=== PATIENT | male | born 1985 | race Caucasian/White ===

== ENCOUNTER 2019-02-04 06:34 | Observation (INO) | payer BC ==
[2019-02-04] VITALS (9 sets, daily range): BP systolic 119–136; BP diastolic 67–86
[~2019-02-04] VITALS: Ht 182.9 cm; Wt 123.5 kg
--- NOTE | ~2019-02-04 | P ---
[facility] [place] [address] PROCEDURE REPORT Name: KARLENE ANDERSON Room #: 219-P [facility] M.R.#: [id number] Admission: 02/04/19 ������������������ Attend Phys: Jones Greco MD Discharge: ������������������ Date of : [birth year] Report #: [id number] THIS REPORT FOR: //name// CC: Jones Gayle DATE OF SERVICE: 02/04/2019 SVT ABLATION: PREOPERATIVE DIAGNOSIS: Atrial tachycardia. POSTOPERATIVE DIAGNOSIS: Atrial tachycardia arising from the right inferior pulmonary vein. PROCEDURES PERFORMED: 1. SVT ablation, CPT code 33873. 2. EP with left atrial pacing and recording, CPT code 04464. 3. Program stimulation and pacing after IV drug infusion, CPT code 87941. 4. Intracardiac echo, CPT code 82930. 5. A 3D mapping, CPT code 45720. 6. Transseptal, CPT code 69812. HISTORY: The patient is a 33-year-old with a history of longstanding SVT, recently diagnosed with a tachycardia mediated cardiomyopathy, EF of 10-15%. He underwent coronary angiogram showing normal coronary arteries. He underwent attempted cardioversion, but this did not terminate the atrial tachycardia. He is here for EP study and ablation. Prior to the procedure, the patient presented in SVT going at around 160-200 beats a minute. In the preoperative holding area, I gave him digoxin 0.5 IV x 1 followed by metoprolol 5 mg x 1. This resulted in slowing of his ventricular rate to around 100 beats per minute. As such, he was prepped and draped in a sterile fashion and placed under general anesthesia and an arterial line was placed by Anesthesia. I then injected lidocaine to the groin region, obtained access to the right and left femoral veins placing an 8 and 6-Spanish short sheath in the right femoral vein and a 7 and 9-Spanish short sheath in the left femoral vein. Next, under fluoroscopy, I placed a Decapolar catheter into the coronary sinus. At baseline, the patient was in what appeared to be an atrial tachycardia with an atrial cycle length of 400 milliseconds, ventricular cycle length of 400 milliseconds, QRS duration of 100 milliseconds, QT interval 330 milliseconds. The atrial activation was very vertical suggestive that this was likely a left-sided atrial tachycardia. [facility] [address] [place] [address] PROCEDURE REPORT Name: KARLENE ANDERSON [facility] Room #: 219-P [facility] Sun Sepulveda#: [id number] Admission: 02/04/19 ������������������ Attend Phys: Jones Greco MD Discharge: ������������������ Date of : [birth year] Report #: [id number] Next, I placed a PentaRay mapping catheter into the right atrium and we created a detailed activation map in the right atrium, which clearly showed that the area of earliest activation was along the posterior septal aspect of the right atrium, suggesting that this was likely a right pulmonary vein focus. As such, the patient was prepped for a transseptal. I placed an ice catheter into the right atrium and created a detailed 3D geometry using CartoSound. There was evidence of a left atrial appendage right into left pulmonary veins. The patient was systemically heparinized and a transseptal was performed using an SL1 sheath and a [place] needle. Next, I placed the PentaRay into the left atrium and created an activation map which demonstrated that this focal atrial tachycardia was arising from the posterior ostium of the right inferior pulmonary vein. Next, I removed my PentaRay catheter and placed the ablation catheter and performed a finer mapping at this location. There was a small focal area where this was arising from that was around 2 cm in size. There was nice unipolar electrograms at this site. I came on with ablation at 35 mcintosh and the atrial tachycardia terminated within 549 milliseconds. This resulted in a long conversion pause and we came on atrial pacing. I slowly came off atrial pacing and his sinus node resumed its activity. I performed an additional ablation at this area to try and consolidate the site of ablation. Then, an EP study was performed. Post-ablation, the patient was in sinus rhythm and AV block was noted at 320 milliseconds. AV karol ERP was noted at 340 milliseconds at a [address] cycle length. Isoproterenol infusion was started at 1 mcg per minute. AV block was noted at 300 milliseconds. AV karol ERP was noted at 290 milliseconds at a [address] cycle length. There were no jumps nor were there any AV karol echoes. Isoproterenol infusion was increased to 2 mcg per minute and AV block was noted at 290 milliseconds. Of note, with atrial burst pacing, the patient did develop right bundle-branch block aberration. Again, no SVT was induced and there was no return of his focal atrial tachycardia. Post-ablation, he was in sinus rhythm with sinus cycle length of 750 milliseconds, MS interval 180 milliseconds, QRS duration 100 milliseconds, a QT interval of 380 milliseconds. As such, catheters and sheaths were pulled. Hemostasis was obtained after the patient received systemic protamine. Using intracardiac ultrasound, I verified there was no pericardial effusion. As such, the procedure was concluded with no complications and no significant bleeding. CONCLUSIONS: 1. Successful ablation of a focal atrial tachycardia arising from the ostium of the posterior aspect of the right inferior pulmonary vein. 2. Normal SA karol function. 3. Normal AV karol function. [facility] [address] [place] [address] PROCEDURE REPORT Name: KARLENE ANDERSON MAY Room #: 219-P [facility] Sun M.R.#: [id number] Admission: 02/04/19 ������������������ Attend Phys: Jones Greco MD Discharge: ������������������ Date of : 89 Report #: [id number] 4. Normal His-Purkinje function. 5. No other inducible arrhythmias on or off isoproterenol. ��������������������������������������������� ���������������������������������������� By: ��������������������������������������������� 1300 0728 Jones Greco MD /nt
[~2019-02-04 06:34] MED LIST: CLARITIN10 MG PO; DIGOXIN125 MCG PO; ELIQUIS5 MG PO; ENTRESTO 24 MG1 EACH PO; EUTHYROX125 MCG PO; FLONASE SENSIM5.9 ML INH; LASIX 20 MG TAB20 MG PO; TOPROL XL100 MG PO
[2019-02-04 07:13] LABS: ABSOLUTE NEUTROPHILS 6.6 thou/uL (1.4-8.2); EOSINOPHILS 2.8 % (0.0-3.0); HEMATOCRIT 55.1 % (42.0-52.0); HEMOGLOBIN 18.5 gm/dL (14.0-18.0); MCH 29.6 pg (26.0-34.0); MCHC 33.6 g/dL (28.0-37.0); MCV 88.1 fL (80.0-100.0); MONOCYTES 7.1 % (1.0-8.0); PLATELET COUNT 187 thou/uL (150-400); POLYS 63.1 % (36.0-66.0); RBC 6.26 mil/uL (4.50-6.00); RDW 15.2 % (10.5-14.5); WBC 10.4 thou/uL (4.0-11.0)
[2019-02-04 07:23] LABS: CALCIUM 9.9 mg/dL (8.5-10.1)
[2019-02-04 07:25] LABS: APTT 27.3 Seconds (24.5-32.8); PROTIME 10.5 Seconds (9.3-11.4)
[2019-02-04 07:29] LABS: ALBUMIN 4.2 g/dL (3.4-5.0); TOTAL BILIRUBIN 0.6 mg/dL (<0.1-1.0); TOTAL PROTEIN 7.8 g/dL (6.4-8.2)
--- NOTE | 2019-02-04 08:26 | EKG ---
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 : 1985 Requested By: Jones Greco Order Number: [id number] MD: Jones Greco Measurements Intervals [place] Rate: 160 P: 0 HI: QRS: -13 QRSD: 107 T: 74 QT: 318 QTc: 519 Interpretive Statements SVT, history of atrial tachycardia No previous ECG available for comparison Electronically Signed On 02-04-2019 8:26:35 CDT by Jones Greco [email or web address] ��������������������������������������������� <ELECTRONICALLY SIGNED> ���������������������������������������� By: Jones Greco MD ��������������������������������������������� 02/04/19 0826 0738 7 Jones Greco MD /GARRET
[2019-02-04] MEDS ORDERED: TOPROL XL100 MG PO (15:22)
[2019-02-04] MEDS ORDERED: AMBIEN 5 MG TABL5 M1 PO (17:08)
[2019-02-05 00:39] VITALS: BP 131/78
[2019-02-05 05:41] VITALS: BP 121/71
[2019-02-05 08:17] VITALS: BP 125/78
[2019-02-05 09:56] VITALS: BP 125/78
--- NOTE | 2019-02-05 16:15 | D ---
[facility] [place] [address] DISCHARGE SUMMARY Name: KARLENE ANDERSON Room #: 219-P [facility] Sun M.Rojas#: [id number] Admission: 02/04/19 ������������������ Attend Phys: Jones Greco MD Discharge: 02/05/19 ������������������ Date of : [birth year] Report #: [id number] THIS REPORT FOR: //name// CC: Jones Gayle DATE OF SERVICE: 02/05/2019 FINAL DIAGNOSES: 1. Atrial tachycardia, status post ablation. 2. Nonischemic cardiomyopathy. 3. Tobacco use. 4. Hypertension. 5. Hypothyroidism. 6. Deep vein thrombosis of the left arm. HOSPITAL COURSE: Please see the original H and P for full details. The patient presented for elective EP procedure with Dr. Jones Greoc. He was found to have an atrial tachycardia, undergoing successful ablation. The arrhythmia was arising from the right inferior pulmonary vein. He remains clinically stable overnight. He denies any chest pains or shortness of air. He is stable for discharge and arrangements were made for follow up with Dr. Greco and his nurse practitioner. DISPOSITION: We will resume Eliquis 5 mg twice a day, Lasix, Synthroid, Toprol-XL 50 mg and Entresto. Digoxin will be discontinued. ��������������������������������������������� <ELECTRONICALLY SIGNED> ���������������������������������������� By: Akshat Wiley MD ��������������������������������������������� 02/05/19 1615 0812 1525 MD piper Abreu
== END 2019-02-05 10:34 | disposition home or self-care (01) ==
LOC: CATH 06:34 → 2N 13:25 → CATH 13:33 → 2N 02-05 10:34
PROVIDERS: ADMIT Internal Medicine Cardiovascular Disease
DX: I47.1 Supraventricular tachycardia (principal); I42.0 Dilated cardiomyopathy; I10 Essential (primary) hypertension; E03.9 Hypothyroidism, unspecified; I82.622 Acute embolism and thrombosis of deep veins of left upper extremity; F17.200 Nicotine dependence, unspecified, uncomplicated; Z98.890 Other specified postprocedural states
CPT/HCPCS: 62110; 62900; 65020; 65040; 70005